=== PATIENT | male | born 1940 | race Caucasian/White ===

== ENCOUNTER 2024-09-06 15:09 | Emergency (ER) | payer SELFPAY ==
[2024-09-06] VITALS (10 sets, daily range): BP systolic 123–158; BP diastolic 74–90; PULSE 61–95; RESP 10–18; TEMP 36.4; O2SAT 96–100; BMI 25.4
--- NOTE | 2024-09-06 16:21 | CTR_ITS ---
PROCEDURE INFORMATION: Exam: CT Head Without Contrast Exam date and time: 09/06/2024 6:39 PM Age: 83 years old Clinical indication: Injury or trauma; Blunt trauma (contusions or hematomas); Fall with headstrike. Per family, patient has been having worsening confusion over last few days. History of dementia. ; Additional info: Fall, head injury TECHNIQUE: Imaging protocol: Computed tomography of the head without contrast. Radiation optimization: All CT scans at this facility use at least one of these dose optimization techniques: automated exposure control; mA and/or kV adjustment per patient size (includes targeted exams where dose is matched to clinical indication); or iterative reconstruction. COMPARISON: No relevant prior studies available. RADIATION DOSE METRICS: Total DLP (mGy-cm): 1148.87 FINDINGS: Brain: No hemorrhage. No edema. Advanced diffuse cerebral atrophy and mild sequela of chronic small vessel ischemic disease. No mass effect. Cerebral ventricles: No ventriculomegaly. Paranasal sinuses: Visualized sinuses are unremarkable. No fluid levels. Mastoid air cells: Visualized mastoid air cells are well aerated. Bones: Unremarkable. No acute fracture. Soft tissues: Unremarkable. CT/CT head wo con* [id number] IMPRESSION: No acute intracranial abnormality.
--- NOTE | 2024-09-06 16:21 | XRR_ITS ---
PROCEDURE INFORMATION: Exam: XR Chest Exam date and time: 09/06/2024 4:52 PM Age: 83 years old Clinical indication: Other: Weakness; Additional info: Weakness; Cough TECHNIQUE: Imaging protocol: Radiologic exam of the chest. Views: 1 view. COMPARISON: No relevant prior studies available. FINDINGS: Lungs: Unremarkable. No consolidation. Pleural spaces: Unremarkable. No pleural effusion. No pneumothorax. Heart/Mediastinum: Unremarkable. No cardiomegaly. Bones/joints: Unremarkable. XR/XR chest 1V portable [id number] IMPRESSION: No acute findings.
--- NOTE | 2024-09-06 16:24 | ECG_ITS ---
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 Measurements Intervals [facility] Rate: 87 P: 0 NC: 0 QRS: 20 QRSD: 96 T: 52 QT: 380 QTc: 458 Interpretive Statements ATRIAL FIBRILLATION ABNORMAL RHYTHM ECG No previous ECG available for comparison Electronically Signed On 09-07-2024 13:02:46 CDT by Dillan Obrien M.D. [id number] [id number]
[2024-09-06 16:53] LABS: Bacteria Urine None Seen /hpf; Bilirubin Urine Neg (Negative); Blood Urine 2+ (Negative); Glucose Urine UA Norm (Normal); Hyaline Casts Urine 7.42 /lpf; Ketones Urine 1+ (Negative); Leukocyte Esterase Urine Negative (Negative); Nitrate Urine Negative (Negative); Protein Urine 1+ (Negative); Squamous Epithelial Cell Urine 0-5 /hpf (0-5); Urine Appearance Clear (CLEAR); Urine Color Yellow (Yellow); Urobilinogen Urine Neg (Negative); WBC Urine 0-5 /hpf (0-5); pH Urine 5 (5-7)
[2024-09-06 17:03] LABS: Basophils % 0.3 %; Eosinophils # 0.2 10^3/uL (0.0-0.8); Eosinophils % 1.1 %; Hematocrit 43.5 % (37-53); Lymphocytes # 2.1 10^3/uL (0.8-4.8); Lymphocytes % 15.1 %; Mean Corpuscular Volume 96.9 fl (82-101); Mean Platelet Volume 10.6 fL (7.4-10.4); Monocytes # 1.5 10^3/uL (0.2-0.9); Monocytes % 10.2 %; Neutrophils # 10.34 10^3/uL (1.8-7.7); Nucleated Red Blood Cells % 0 %; Platelet Count 232 10^3/cmm (157-399); Red Blood Count 4.49 10^6/uL (3.85-5.65); Red Cell Distribution Width 13.3 % (12.1-15.1); White Blood Count 14.17 10^3/uL (3.29-11.43)
[2024-09-06 17:05] LABS: UA Slide Review UA Slide Review Perf
[2024-09-06 17:23] LABS: Alanine Aminotransferase 23 U/L (0-41); Albumin Level 4.1 g/dL (3.5-5.2); Alcohol Level < 10 mg/dL (0-10); Alkaline Phosphatase 91 U/L (40-130); Anion Gap 16.9 (5-19); Aspartate Amino Transferase 80 U/L (0-40); Blood Urea Nitrogen 19 mg/dL (8-23); Calcium 8.9 mg/dL (8.5-10.5); Carbon Dioxide 20 mmol/L (22-29); Chloride 101 mmol/L (98-107); Creatinine Clr Calc Pharmacy 66.2316; Globulin 3.1 g/dL (1.3-4.6); Glucose 137 mg/dL (65-115); Osmolality Calculated 282 mOsm/kg (285-295); Potassium 3.9 mmol/L (3.5-5.1); Sodium 134 mmol/L (136-145); Total Protein 7.2 g/dL (6.6-8.7)
[2024-09-06 17:24] LABS: Influenza A NEGATIVE (Negative); Influenza B NEGATIVE (Negative); Respiratory Syncytial Virus Ce NEGATIVE (Negative); SARS-CoV-2 PCR NEGATIVE (Negative)
[2024-09-06 17:24] LABS: Lactic Sepsis W/Reflex 1.4 mmol/L (0.5-2.2)
[2024-09-06 17:30] LABS: Procalcitonin 0.08 ng/mL (0-0.5)
[2024-09-06] MEDS: haloperidol inj 5 mg/mL INJ 1 mL IVP (17:30)
[2024-09-06] MEDS: LORazepam 2 mg/mL INJ 1 mL 0.5 MG IVP (17:30)
--- NOTE | 2024-09-06 17:55 | ED_ITS ---
Documented by User: Ronda Castellano MD 09/07/24 07:04 HPI - Altered Mental Status 2 General: Chief Complaint: Altered Mental Status Stated Complaint: ams Time Seen by Provider: 09/06/24 16:18 History of Present Illness: 83-year-old man who presents to the [facility] room with worsening agitation, confusion and falls. He does seem a bit agitated on exam. Family says this has been worsening over some time now but has been worse over the last 24 hours. No reports of fevers or chills. No nausea or vomiting. He has no focal motor deficits. He does become quite agitated at times. Related Data Allergies Allergy/AdvReac Type Severity Reaction Status Date / Time No Known Allergies Allergy Verified 09/06/24 15:20 Review of Systems 2 Narrative: Constitutional symptoms: Negative except as documented in HPI. Skin symptoms: Negative except as documented in HPI. Eye symptoms: Negative except as documented in HPI. ENMT symptoms: Negative except as documented in HPI. Respiratory symptoms: Negative except as documented in HPI. Cardiovascular symptoms: Negative except as documented in HPI. Gastrointestinal symptoms: Negative except as documented in HPI. Genitourinary symptoms: Negative except as documented in HPI. Musculoskeletal symptoms: Negative except as documented in HPI. Neurologic symptoms: Negative except as documented in HPI. Psychiatric symptoms: Negative except as documented in HPI. Endocrine symptoms: Negative except as documented in HPI. Physical Exam 2 Narrative: General: Alert, no acute distress. Skin: Warm, dry. Head: Normocephalic, abrasion on right forehead. Neck: Supple, trachea midline. Eye: Extraocular movements are intact. Ears, nose, mouth and throat: mucosa moist. Cardiovascular: Regular, Normal peripheral perfusion. Respiratory: Lungs are clear to auscultation, respirations are non-labored, breath sounds are equal, Symmetrical chest wall expansion. Gastrointestinal: Soft, Nontender, Non distended Musculoskeletal: Normal ROM, no deformity. Neurological: Alert and oriented, No focal neurological deficit observed. Psychiatric: Slightly confused and agitated at time. Course 2 Vital Signs: Vital signs: Vital Signs Temperature 97.6 F 09/06/24 15:17 Pulse Rate 64 09/07/24 05:27 Respiratory Rate 13 09/07/24 05:27 Blood Pressure 125/69 09/07/24 05:27 Pulse Oximetry 97 09/07/24 02:49 Oxygen Delivery Me thod Room Air 09/06/24 18:30 MDM - Altered Mental Status Medical Decision Making Medical decision making: Differential diagnosis including but not limited to and based on the above HPI, review of systems and physical exam: In this patient with altered mental status: Stroke. Hypoglycemia. Metabolic encephalopathy. Infections such as pneumonia, urinary tract infection, Covid-19, Influenza. Electrolyte abnormalities such as hypernatremia. Renal failure / uremia. Hepatic encephalopathy. Hypoxemia. Hypercapnic respiratory failure. Psychosis. Drug or alcohol intoxication. Medication overdose. Orders placed to evaluate differential diagnosis based on the above differential, HPI and physical exam Chest x-ray: No acute process. No infiltrate. No pneumothorax. This was reviewed and interpreted by myself the emergency room physician. I also reviewed the radiology report. Lab Review: Laboratory results were reviewed and interpreted by myself the emergency room physician. Mild leukocytosis. No anemia. No renal failure. No UTI. No signs of pneumonia on chest x-ray. CT head: No acute intracranial process. no intracranial hemorrhage, no evidence of infarct. no evidence of acute fracture.This was reviewed and interpreted by myself the ER physician. Patient been transitioned to overnight physician but had not been accepted anywhere overnight. His mentation has improved. It appears that he has some dementia. Family is still with him and they feel comfortable taking him home. At this point he does not seem appropriate for an inpatient [facility] admission. Assessment and plan: Multiple falls Head injury Encephalopathy, resolved - Discharged home - Discussed plan with patient. Answered any questions. - Evaluation and treatment of this problem were appropriate in the emergency setting. Lab Data 09/06/24 16:56 09/06/24 16:56 Radiology Impressions Chest X-Ray 09/06/24 16:21 IMPRESSION: No acute findings. Head CT 09/06/24 16:21 IMPRESSION: No acute intracranial abnormality. Laboratory Results WBC 14.17 10^3/uL (3.29-11.43) H 09/06/24 16:56 RBC 4.49 10^6/uL (3.85-5.65) 09/06/24 16:56 Hgb 13.90 g/dL (11.27-16.99) 09/06/24 16:56 Hct 43.5 % (37-53) 09/06/24 16:56 MCV 96.9 fl (82-101) 09/06/24 16:56 MCH 31.0 pg (27-33) 09/06/24 16:56 MCHC 32.0 g/dL (30-55) 09/06/24 16:56 RDW 13.3 % (12.1-15.1) 09/06/24 16:56 Plt Count 232 10^3/cmm (157-399) 09/06/24 16:56 MPV 10.6 fL (7.4-10.4) H 09/06/24 16:56 Neut % (Auto) 73.0 % 09/06/24 16:56 Lymph % (Auto) 15.1 % 09/06/24 16:56 [place] % (Auto) 10.2 % 09/06/24 16:56 Eos % (Auto) 1.1 % 09/06/24 16:56 Baso % (Auto) 0.3 % 09/06/24 16:56 Neut # (Auto) 10.34 10^3/uL (1.8-7.7) H 09/06/24 16:56 Lymph # (Auto) 2.1 10^3/uL (0.8-4.8) 09/06/24 16:56 [place] # (Auto) 1.5 10^3/uL (0.2-0.9) H 09/06/24 16:56 Eos # (Auto) 0.2 10^3/uL (0.0-0.8) 09/06/24 16:56 Baso # (Auto) 0.0 10^3/uL (0.0-0.1) 09/06/24 16:56 Nucleated RBC % (auto) 0 % 09/06/24 16:56 Nucleated RBCs # 0.0 /100WBC 09/06/24 16:56 Sodium 134 mmol/L (136-145) L 09/06/24 16:56 Potassium 3.9 mmol/L (3.5-5.1) 09/06/24 16:56 Chloride 101 mmol/L (98-107) 09/06/24 16:56 Carbon Dioxide 20 mmol/L (22-29) L 09/06/24 16:56 Anion Gap 16.9 (5-19) 09/06/24 16:56 BUN 19 mg/dL (8-23) 09/06/24 16:56 Creatinine 0.7 mg/dL (0.7-1.2) 09/06/24 16:56 GFR Calculation Not Reportable 09/06/24 16:56 Glucose 137 mg/dL (65-115) H 09/06/24 16:56 Calculated Osmolality 282 mOsm/kg (285-295) L 09/06/24 16:56 Lactic Acid 1.4 mmol/L (0.5-2.2) 09/06/24 16:56 Calcium 8.9 mg/dL (8.5-10.5) 09/06/24 16:56 Magnesium 2.3 mg/dL (1.7-2.3) 09/06/24 16:56 Total Bilirubin 1.0 mg/dL (0.15-1.2) 09/06/24 16:56 AST 80 U/L (0-40) H 09/06/24 16:56 ALT 23 U/L (0-41) 09/06/24 16:56 Alkaline Phosphatase 91 U/L (40-130) 09/06/24 16:56 Total Protein 7.2 g/dL (6.6-8.7) 09/06/24 16:56 Albumin 4.1 g/dL (3.5-5.2) 09/06/24 16:56 Globulin 3.1 g/dL (1.3-4.6) 09/06/24 16:56 Procalcitonin 0.08 ng/mL (0-0.5) 09/06/24 16:56 TSH 2.55 uIU/mL (0.27-4.20) 09/06/24 16:56 Urine Color Yellow (Yellow) 09/06/24 16:36 Urine Appearance Clear (CLEAR) 09/06/24 16:36 Urine pH 5 (5-7) 09/06/24 16:36 Ur Specific [place] 1.020 (1.005-1.030) 09/06/24 16:36 Urine Protein 1+ (Negative) H 09/06/24 16:36 Urine Glucose (UA) Norm (Normal) 09/06/24 16:36 Urine Ketones 1+ (Negative) H 09/06/24 16:36 Urine Blood 2+ (Negative) H 09/06/24 16:36 Urine Nitrate Negative (Negative) 09/06/24 16:36 Urine Bilirubin Neg (Negative) 09/06/24 16:36 Urine Urobilinogen Neg mg/dL (Negative) 09/06/24 16:36 Ur Leukocyte Esterase Negative (Negative) 09/06/24 16:36 Urine RBC 6-10 /hpf (0-2) 09/06/24 16:36 Urine WBC 0-5 /hpf (0-5) 09/06/24 16:36 Ur Squamous Epith Cells 0-5 /hpf (0-5) 09/06/24 16:36 Amorphous Sediment Not Reportable 09/06/24 16:36 Urine Bacteria None seen /hpf (NONE) 09/06/24 16:36 Hyaline Casts 7.42 /lpf 09/06/24 16:36 Salicylates 0.4 mg/dL (3-10) L 09/06/24 16:56 Urine Opiates Screen Negative ng/mL (Negative) 09/06/24 16:36 Acetaminophen < 5.0 ug/mL (10-30) L 09/06/24 16:56 Ur Barbiturates Screen Negative ng/mL (Negative) 09/06/24 16:36 Ur Phencyclidine Scrn Negative ng/mL (Negative) 09/06/24 16:36 Ur Amphetamines Screen Negative ng/mL (Negative) 09/06/24 16:36 U Benzodiazepines Scrn Negative ng/mL (Negative) 09/06/24 16:36 Urine Cocaine Screen Negative ng/mL (Negative) 09/06/24 16:36 U Marijuana (THC) Screen Negative ng/mL (Negative) 09/06/24 16:36 Ethyl Alcohol < 10 mg/dL (0-10) 09/06/24 16:56 Influenza A (PCR) Negative (Negative) 09/06/24 19:45 Influenza Type B (PCR) Negative (Negative) 09/06/24 19:45 RSV (PCR) Negative (Negative) 09/06/24 19:45 SARS-CoV-2 (PCR) Negative (Negative) 09/06/24 19:45 Discharge Plan Discharge Patient Disposition: Home Clinical Impression: Dementia, Head injury, Multiple falls Condition: Stable Discharge Orders: Discharge ED (Routine); Ordered 09/07/24 Ordered By: Ronda Castellano Discharge Diet: Usual diet Discharge Activity: Increase activity as tolerated Patient Instructions: Fall Prevention for Older Adults (ED), Altered Mental Status (ED), Opioid Safety, Pain Management Activity Restrictions/Additional Instructions: Please follow-up with your primary care physician. Your family has concern about changes in your mentation. You may be developing some dementia and this needs evaluated and possibly treated by your primary provider or even possibly a specialist. Thank you for choosing [facility] for your healthcare needs today. Please realize this is an emergency room and that we are providing you with a medical screening exam and this may not be complete and all inclusive of all the testing and or work up that you may need to determine your ailment or severity of your illness. You have been screened and evaluated and felt safe for discharge. Health conditions do change or evolve sometimes and as such it is important that you follow up with your Primary Doctor to be re checked, 3-5 days is a general good time frame for follow up. You are always welcome to return to the ED for re assessment if your symptoms are worsening or you have new concerns Print Language: Swazi Coding Level of Care Code ED Used Car Sales Manager for [employer] Documented by User: Eduardo Lamb DO 09/07/24 01:17 HPI - Altered Mental Status 2 General: Chief Complaint: Altered Mental Status Stated Complaint: ams Time Seen by Provider: 09/06/24 16:18 Related Data Allergies Allergy/AdvReac Type Severity Reaction Status Date / Time No Known Allergies Allergy Verified 09/06/24 15:20 Course 2 Vital Signs: Vital signs: Vital Signs Temperature 97.6 F 09/06/24 15:17 Pulse Rate 64 09/07/24 05:27 Respiratory Rate 13 09/07/24 05:27 Blood Pressure 125/69 09/07/24 05:27 Pulse Oximetry 97 09/07/24 02:49 Oxygen Delivery Me thod Room Air 09/06/24 18:30 MDM - Altered Mental Status Lab Data 09/06/24 16:56 09/06/24 16:56 Radiology Impressions Chest X-Ray 09/06/24 16:21 IMPRESSION: No acute findings. Head CT 09/06/24 16:21 IMPRESSION: No acute intracranial abnormality. Laboratory Results WBC 14.17 10^3/uL (3.29-11.43) H 09/06/24 16:56 RBC 4.49 10^6/uL (3.85-5.65) 09/06/24 16:56 Hgb 13.90 g/dL (11.27-16.99) 09/06/24 16:56 Hct 43.5 % (37-53) 09/06/24 16:56 MCV 96.9 fl (82-101) 09/06/24 16:56 MCH 31.0 pg (27-33) 09/06/24 16:56 MCHC 32.0 g/dL (30-55) 09/06/24 16:56 RDW 13.3 % (12.1-15.1) 09/06/24 16:56 Plt Count 232 10^3/cmm (157-399) 09/06/24 16:56 MPV 10.6 fL (7.4-10.4) H 09/06/24 16:56 Neut % (Auto) 73.0 % 09/06/24 16:56 Lymph % (Auto) 15.1 % 09/06/24 16:56 [place] % (Auto) 10.2 % 09/06/24 16:56 Eos % (Auto) 1.1 % 09/06/24 16:56 Baso % (Auto) 0.3 % 09/06/24 16:56 Neut # (Auto) 10.34 10^3/uL (1.8-7.7) H 09/06/24 16:56 Lymph # (Auto) 2.1 10^3/uL (0.8-4.8) 09/06/24 16:56 [place] # (Auto) 1.5 10^3/uL (0.2-0.9) H 09/06/24 16:56 Eos # (Auto) 0.2 10^3/uL (0.0-0.8) 09/06/24 16:56 Baso # (Auto) 0.0 10^3/uL (0.0-0.1) 09/06/24 16:56 Nucleated RBC % (auto) 0 % 09/06/24 16:56 Nucleated RBCs # 0.0 /100WBC 09/06/24 16:56 Sodium 134 mmol/L (136-145) L 09/06/24 16:56 Potassium 3.9 mmol/L (3.5-5.1) 09/06/24 16:56 Chloride 101 mmol/L (98-107) 09/06/24 16:56 Carbon Dioxide 20 mmol/L (22-29) L 09/06/24 16:56 Anion Gap 16.9 (5-19) 09/06/24 16:56 BUN 19 mg/dL (8-23) 09/06/24 16:56 Creatinine 0.7 mg/dL (0.7-1.2) 09/06/24 16:56 GFR Calculation Not Reportable 09/06/24 16:56 Glucose 137 mg/dL (65-115) H 09/06/24 16:56 Calculated Osmolality 282 mOsm/kg (285-295) L 09/06/24 16:56 Lactic Acid 1.4 mmol/L (0.5-2.2) 09/06/24 16:56 Calcium 8.9 mg/dL (8.5-10.5) 09/06/24 16:56 Magnesium 2.3 mg/dL (1.7-2.3) 09/06/24 16:56 Total Bilirubin 1.0 mg/dL (0.15-1.2) 09/06/24 16:56 AST 80 U/L (0-40) H 09/06/24 16:56 ALT 23 U/L (0-41) 09/06/24 16:56 Alkaline Phosphatase 91 U/L (40-130) 09/06/24 16:56 Total Protein 7.2 g/dL (6.6-8.7) 09/06/24 16:56 Albumin 4.1 g/dL (3.5-5.2) 09/06/24 16:56 Globulin 3.1 g/dL (1.3-4.6) 09/06/24 16:56 Procalcitonin 0.08 ng/mL (0-0.5) 09/06/24 16:56 TSH 2.55 uIU/mL (0.27-4.20) 09/06/24 16:56 Urine Color Yellow (Yellow) 09/06/24 16:36 Urine Appearance Clear (CLEAR) 09/06/24 16:36 Urine pH 5 (5-7) 09/06/24 16:36 Ur Specific [place] 1.020 (1.005-1.030) 09/06/24 16:36 Urine Protein 1+ (Negative) H 09/06/24 16:36 Urine Glucose (UA) Norm (Normal) 09/06/24 16:36 Urine Ketones 1+ (Negative) H 09/06/24 16:36 Urine Blood 2+ (Negative) H 09/06/24 16:36 Urine Nitrate Negative (Negative) 09/06/24 16:36 Urine Bilirubin Neg (Negative) 09/06/24 16:36 Urine Urobilinogen Neg mg/dL (Negative) 09/06/24 16:36 Ur Leukocyte Esterase Negative (Negative) 09/06/24 16:36 Urine RBC 6-10 /hpf (0-2) 09/06/24 16:36 Urine WBC 0-5 /hpf (0-5) 09/06/24 16:36 Ur Squamous Epith Cells 0-5 /hpf (0-5) 09/06/24 16:36 Amorphous Sediment Not Reportable 09/06/24 16:36 Urine Bacteria None seen /hpf (NONE) 09/06/24 16:36 Hyaline Casts 7.42 /lpf 09/06/24 16:36 Salicylates 0.4 mg/dL (3-10) L 09/06/24 16:56 Urine Opiates Screen Negative ng/mL (Negative) 09/06/24 16:36 Acetaminophen < 5.0 ug/mL (10-30) L 09/06/24 16:56 Ur Barbiturates Screen Negative ng/mL (Negative) 09/06/24 16:36 Ur Phencyclidine Scrn Negative ng/mL (Negative) 09/06/24 16:36 Ur Amphetamines Screen Negative ng/mL (Negative) 09/06/24 16:36 U Benzodiazepines Scrn Negative ng/mL (Negative) 09/06/24 16:36 Urine Cocaine Screen Negative ng/mL (Negative) 09/06/24 16:36 U Marijuana (THC) Screen Negative ng/mL (Negative) 09/06/24 16:36 Ethyl Alcohol < 10 mg/dL (0-10) 09/06/24 16:56 Influenza A (PCR) Negative (Negative) 09/06/24 19:45 Influenza Type B (PCR) Negative (Negative) 09/06/24 19:45 RSV (PCR) Negative (Negative) 09/06/24 19:45 SARS-CoV-2 (PCR) Negative (Negative) 09/06/24 19:45 All radiology interpretation(s) finalized by discharge Discharge Plan Discharge Patient Disposition: Home Clinical Impression: Dementia, Head injury, Multiple falls Condition: Stable Discharge Orders: Discharge ED (Routine); Ordered 09/07/24 Ordered By: Ronda Castellano Discharge Diet: Usual diet Discharge Activity: Increase activity as tolerated Patient Instructions: Fall Prevention for Older Adults (ED), Altered Mental Status (ED), Opioid Safety, Pain Management Activity Restrictions/Additional Instructions: Please follow-up with your primary care physician. Your family has concern about changes in your mentation. You may be developing some dementia and this needs evaluated and possibly treated by your primary provider or even possibly a specialist. Thank you for choosing [facility] for your healthcare needs today. Please realize this is an emergency room and that we are providing you with a medical screening exam and this may not be complete and all inclusive of all the testing and or work up that you may need to determine your ailment or severity of your illness. You have been screened and evaluated and felt safe for discharge. Health conditions do change or evolve sometimes and as such it is important that you follow up with your Primary Doctor to be re checked, 3-5 days is a general good time frame for follow up. 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
--- NOTE | 2024-09-06 19:32 | ECG_ITS ---
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 Measurements Intervals [place] Rate: 60 P: 133 CT: 196 QRS: 30 QRSD: 105 T: 112 QT: 403 QTc: 404 Interpretive Statements SINUS RHYTHM INDETERMINATE AXIS LATERAL MYOCARDIAL INFARCTION , PROBABLY RECENT [40+ ms Q WAVE AND/OR ST/T ABNORMALITY IN I/aVL/V5/V6] ACUTE SD Compared to ECG 09/06/2024 16:24:58 Indeterminate axis now present Myocardial infarct finding now present Atrial fibrillation no longer present Electronically Signed On 09-07-2024 13:01:37 CDT by Dillan Obrien M.D. [id number] [id number]
[2024-09-06 20:01] LABS: Magnesium 2.3 mg/dL (1.7-2.3); Thyroid Stimulating Hormone 2.55 uIU/mL (0.27-4.20)
[2024-09-06 20:32] LABS: Influenza A NEGATIVE (Negative); Influenza B NEGATIVE (Negative); Respiratory Syncytial Virus Ce NEGATIVE (Negative); SARS-CoV-2 PCR NEGATIVE (Negative)
[2024-09-06 21:04] LABS: Amphetamines Screen Urine Negative (Negative); Barbiturates Screen Urine Negative (Negative); Benzodiazepines Screen Urine Negative (Negative); Cocaine Screen Urine Negative (Negative); Opiate Screen Urine Negative (Negative); PCP Screen Urine Negative (Negative); THC Screen Urine Negative (Negative)
[2024-09-06 21:51] LABS: Acetaminophen < 5.0 ug/mL (10-30); Salicylate 0.4 mg/dL (3-10)
--- NOTE | 2024-09-06 23:53 | PC.NURSE ---
Assumed care from Nae MARC at this time.
[2024-09-07 01:17] VITALS: PULSE 59; O2SAT 100
[2024-09-07 02:49] VITALS: PULSE 58; O2SAT 97
--- NOTE | 2024-09-07 04:19 | PC.NURSE ---
[facility] facility denied acceptance due to patient confusion.
[2024-09-07 05:27] VITALS: BP 125/69; PULSE 64; RESP 13
[2024-09-07 07:00] VITALS: BP 136/55; PULSE 65; RESP 14; O2SAT 100
[2024-09-07 07:14] VITALS: BP 117/55; PULSE 76; RESP 13; O2SAT 98
== END 2024-09-07 09:25 | disposition home or self-care (01) ==
PROVIDERS: Emergency Medicine; Emergency Provider Emergency Medicine
DX: S09.90XA Unspecified injury of head, initial encounter (principal); W19.XXXA Unspecified fall, initial encounter; F03.90 Unspecified dementia, unspecified severity, without behavioral disturbance, psychotic disturbance, mood disturbance, and anxiety; Z11.52 Encounter for screening for COVID-19
CPT/HCPCS: 36415; 70450; 71045; 80053; 80306; 80307; 81001; 83605; 83735; 84145; 84443; 85025; 87040; 87637; 93005; 96374; 96375; 99285; J1630; J2060